=== PATIENT | male | born 1955 | race Caucasian/White ===

== ENCOUNTER 2016-11-23 17:29 | Emergency (ER) | payer OTHER ==
[2016-11-23] MEDS ORDERED: Lidocaine 2% 10 ML Amp INJECT ONE (17:52)
[2016-11-23] MEDS ORDERED: Diphtheria,Pertussis(Acell),Tetanus Vaccine 0.5 ML SDV IM ONE (17:56)
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
[2016-11-23] MEDS ORDERED: Cephalexin 500 MG Cap PO ONE (18:35)
[2016-11-23 18:54] VITALS: BP 148/78
--- NOTE | 2016-11-24 12:26 | CR ---
INDICATION: Injury, open laceration. Slightly deformed. Got stuck in inocencio system. LEFT 4TH FINGER: Three views of the left 4th finger revealed a comminuted fracture avulsion with possible open fracture site at the distal shaft - ungual tuft of the 4th digit. Lateral offset and volar offset of the distal fracture fragment are noted. The lateral offset is more severe, as is the soft tissue injury and deformity. There are mild degenerative changes at the DIP joints. MTDD
== END 2016-11-23 18:52 | disposition home or self-care (01) ==
LOC: FB.ED 17:29
DX: S62.635B Displaced fracture of distal phalanx of left ring finger, initial encounter for open fracture (principal); W23.0XXA Caught, crushed, jammed, or pinched between moving objects, initial encounter; Y99.0 Civilian activity done for income or pay; Z23 Encounter for immunization
CPT/HCPCS: 12001; 73140; 90471; 90715; 99283; A4217; A9270